=== PATIENT | female | born 1990 | race Caucasian/White ===

== ENCOUNTER 2017-05-01 14:31 | Day surgery (SDC) | payer OTHER ==
--- NOTE | 2017-05-01 15:05 | ER Document Report ---
ED Medical Screen (RME) - General Chief Complaint: Abdominal Pain Stated Complaint: STOMACH PAIN Time Seen by Provider: 05/01/17 15:03 Notes: Patient says that she awakened this morning feeling fine. She drove to the grocery store and while walking around in the grocery store began to feel some slight discomfort in her right abdomen. On the way home, while sitting in the car, she began to have actual pain in the right lower portion of her abdomen. She went to a local urgent care who told her to come here and make sure she did not have appendicitis. Has not had any nausea or vomiting. She has had diarrhea from Friday until now, but she is unable to go at all at this moment. Has not had any UTI symptoms. Not sure if she has had any fever although she has felt warm. PMH: Cholecystectomy, . Bipolar. Hypothyroid. TRAVEL OUTSIDE OF THE [place] IN LAST 30 DAYS: No - Related Data Allergies/Adverse Reactions: No Known Allergies Allergy (Verified 05/01/17 14:41) Past Medical History - Social History Chew tobacco use (# tins/day): No Frequency of alcohol use: None Drug Abuse: None Renal/ Medical History: Denies: Hx Peritoneal Dialysis Past Surgical History: Reports: Hx Section, Hx Cholecystectomy - Immunizations Hx Diphtheria, Pertussis, Tetanus Vaccination: Yes Physical Exam - Vital signs Vitals: Temp Pulse Resp BP Pulse Ox 98.1 F 107 H 18 145/116 H 100 05/01/17 14:39 05/01/17 14:39 05/01/17 14:39 05/01/17 14:39 05/01/17 14:39 Course - Vital Signs Vital signs: Temp Pulse Resp BP Pulse Ox 98.1 F 107 H 18 145/116 H 100 05/01/17 14:39 05/01/17 14:39 05/01/17 14:39 05/01/17 14:39 05/01/17 14:39
[2017-05-01 16:02] LABS: ABSOLUTE BASOPHILS # (AUTO) 0.1 10^3/uL (0.0-0.2); ABSOLUTE LYMPHOCYTES (AUTO) 1.1 10^3/uL (0.5-4.7); ABSOLUTE MONOCYTES (AUTO) 0.8 10^3/uL (0.1-1.4); ABSOLUTE NEUT (AUTO) 14.4 10^3/uL (1.7-8.2); BASOPHILS % (AUTO) 0.3 % (0-2); EOSINOPHILS % (AUTO) 0.3 % (0-6); HEMATOCRIT 42.9 % (36.0-47.0); HGB HCT DIFFERENCE -0.9; LYMPHOCYTES % (AUTO) 6.8 % (13-45); MEAN CORPUSCULAR HEMOGLOBIN 28.5 pg (27.0-33.4); MEAN CORPUSCULAR HGB CONC 32.5 g/dL (32.0-36.0); MEAN CORPUSCULAR VOLUME 88 fl (80-97); MONOCYTES % (AUTO) 4.7 % (3-13); RED CELL DISTRIBUTION WIDTH 12.1 % (11.5-14.0); SEGMENTED NEUTROPHILS % (AUTO) 87.9 % (42-78); WHITE BLOOD COUNT 16.4 10^3/uL (4.0-10.5)
[2017-05-01 16:16] LABS: ALANINE AMINOTRANSFERASE 56 U/L (9-52); ALBUMIN 4.7 g/dL (3.5-5.0); ALKALINE PHOSPHATASE 99 U/L (38-126); ANION GAP 12 (5-19); ASPARTATE AMINO TRANSFERASE 33 U/L (14-36); BILIRUBIN,DIRECT 0.3 mg/dL (0.0-0.4); BILIRUBIN,TOTAL 0.8 mg/dL (0.2-1.3); BLOOD UREA NITROGEN 12 mg/dL (7-20); CALCIUM 9.9 mg/dL (8.4-10.2); CARBON DIOXIDE 26 mmol/L (22-30); CHLORIDE 103 mmol/L (98-107); CREATININE RESULT 0.94 mg/dL (0.52-1.25); GLUCOSE 101 mg/dL (75-110); LIPASE 64.6 U/L (23-300); POTASSIUM 4.3 mmol/L (3.6-5.0); SODIUM 140.8 mmol/L (137-145); TOTAL PROTEIN 8.1 g/dL (6.3-8.2)
[2017-05-01 16:27] LABS: APPEARANCE,URINE CLEAR; BILIRUBIN,URINE NEGATIVE (NEGATIVE); GLUCOSE, URINE NEGATIVE (NEGATIVE); KETONES,URINE NEGATIVE (NEGATIVE); LEUKOCYTE ESTERASE,URINE NEGATIVE (NEGATIVE); NITRITE,URINE NEGATIVE (NEGATIVE); PROTEIN,URINE NEGATIVE (NEGATIVE); URINE SPECIFIC GRAVITY 1.023; UROBILINOGEN,URINE NEGATIVE mg/dL (<2.0)
--- NOTE | 2017-05-01 17:05 | ER Document Report ---
ED GI/ - General Chief Complaint: Abdominal Pain Stated Complaint: STOMACH PAIN Time Seen by Provider: 05/01/17 15:03 Notes: Patient is a 26-year-old female, past medical history hypothyroidism, bipolar, presents from the urgent care center after she has lower abdominal pain that started this morning and has now migrated to her right lower quadrant. She is also having nausea and vomiting. She denies diarrhea, constipation, fevers, flank pain, hematuria, dysuria, chest pain or shortness of breath. TRAVEL OUTSIDE OF THE [place] IN LAST 30 DAYS: No - Related Data Allergies/Adverse Reactions: No Known Allergies Allergy (Verified 05/01/17 14:41) Past Medical History - General Information source: Patient - Social History Smoking Status: Never Smoker Chew tobacco use (# tins/day): No Frequency of alcohol use: None Drug Abuse: None Family History: Reviewed & Not Pertinent Patient has suicidal ideation: No Patient has homicidal ideation: No Renal/ Medical History: Denies: Hx Peritoneal Dialysis Past Surgical History: Reports: Hx Section, Hx Cholecystectomy - Immunizations Hx Diphtheria, Pertussis, Tetanus Vaccination: Yes Review of Systems - Review of Systems Notes: REVIEW OF SYSTEMS: CONSTITUTIONAL: -fevers, -chills EENT: -eye pain, -difficulty swallowing, -nasal congestion CARDIOVASCULAR:-chest pain, -syncope. RESPIRATORY: -cough, -SOB GASTROINTESTINAL: +abdominal pain, +nausea, +vomiting, -diarrhea GENITOURINARY: -dysuria, -hematuria MUSCULOSKELETAL: -back pain, -neck pain SKIN: -rash or skin lesions. HEMATOLOGIC: -easy bruising or bleeding. LYMPHATIC: -swollen, enlarged glands. NEUROLOGICAL: -altered mental status or loss of consciousness, -headache, - neurologic symptoms PSYCHIATRIC: -anxiety, -depression. ALL OTHER SYSTEMS REVIEWED AND NEGATIVE. Physical Exam - Vital signs Vitals: Temp Pulse Resp BP Pulse Ox 98.1 F 107 H 18 145/116 H 100 05/01/17 14:39 05/01/17 14:39 05/01/17 14:39 05/01/17 14:39 05/01/17 14:39 - Notes Notes: PHYSICAL EXAMINATION: GENERAL: Crying, in moderate distress HEAD: Atraumatic, normocephalic. EYES: Pupils equal round and reactive to light, extraocular movements intact, sclera anicteric, conjunctiva are normal. ENT: nares patent, oropharynx clear without exudates. Moist mucous membranes. NECK: Normal range of motion, supple without lymphadenopathy LUNGS: Breath sounds clear to auscultation bilaterally and equal. No wheezes rales or rhonchi. HEART: Tachycardia ABDOMEN: Soft, nontender, normoactive bowel sounds. No guarding, no rebound. No masses appreciated. : No vaginal discharge, non-tender left and right adnexa, no masses, tenderness above right adnexa EXTREMITIES: Normal range of motion, no pitting or edema. No cyanosis. NEUROLOGICAL: Cranial nerves grossly intact. Normal speech, normal gait. Normal sensory and motor exams. PSYCH: Normal mood, normal affect. SKIN: Warm, Dry, normal turgor, no rashes or lesions noted. Course - Re-evaluation Re-evalutation: Concerned for appendicitis with nausea, vomiting and right lower quadrant abdominal pain. CT shows possible early appendicitis. With the leukocytosis and continuing RLQ pain, N/V, spoke to Dr. Law at 19:50 and he will see patient. 05/01/17 21:09 Dr. Law has accepted patient for Surgery. - Vital Signs Vital signs: Temp Pulse Resp BP Pulse Ox 98.1 F 80 18 121/73 98 05/01/17 14:39 05/01/17 19:29 05/01/17 19:29 05/01/17 19:29 05/01/17 19:29 - Laboratory Result Diagrams: 05/01/17 15:40 05/01/17 15:40 Laboratory results interpreted by me: 05/01/17 05/01/17 15:40 15:40 WBC 16.4 H Seg Neutrophils % 87.9 H Lymphocytes % 6.8 L Absolute Neutrophils 14.4 H ALT 56 H - Diagnostic Test Radiology reviewed: Image reviewed, Reports reviewed Radiology results interpreted by me: CT A/P: Possible early appendicitis Discharge - Discharge Clinical Impression: Abdominal pain Qualifiers: Abdominal location: right lower quadrant Qualified Code(s): R10.31 - Right lower quadrant pain Appendicitis, unqualified Qualifiers: Appendicitis type: acute appendicitis Qualified Code(s): K37 - Unspecified appendicitis Condition: Stable Disposition: ADMITTED INPATIENT Admitting Provider: Surgicalist - [facility] Admitted: Surgical Floor
[2017-05-01] MEDS ORDERED: MORPHINE SULFATE 10 MG/ML INJ IV ONE ×2 (17:17→20:11)
[2017-05-01] MEDS ORDERED: ONDANSETRON HCL INJ/PF 4 MG/2 ML SDV IV ONE ×3 (17:17→21:25)
--- NOTE | 2017-05-01 19:23 | RADIOLOGY REPORT (SQ) ---
EXAM DESCRIPTION: CT ABD/PELVIS WITH IV ONLY COMPLETED DATE/TIME: 05/01/2017 7:11 pm REASON FOR STUDY: RLQ pain COMPARISON: None. TECHNIQUE: CT scan of the abdomen and pelvis performed using helical scanning technique with dynamic intravenous contrast injection. No oral contrast. Images reviewed with lung, soft tissue, and bone windows. Reconstructed coronal and sagittal MPR images reviewed. Delayed images for evaluation of the urinary system also acquired. All images stored on PACS. All CT scanners at this facility use dose modulation, iterative reconstruction, and/or weight based d osing when appropriate to reduce radiation dose to as low as reasonably achievable (ALARA). [facility]: Dose Right [facility]: CareDose [facility]: Dose Right [facility]: Teradose 4D [facility]: Zextit CONTRAST TYPE AND DOSE: contrast/concentration: Isovue 370.00 mg/ml; Total Contrast Delivered: 100.0 ml; Total Saline Delivered: 32.4 ml RENAL FUNCTION: GFR > 60. RADIATION DOSE: Up-to-date CT equipment and radiation dose reduction techniques were employed. CTDIv ol: 12.8 - 17.0 mGy. DLP: 1799 mGy-cm.. LIMITATIONS: None. FINDINGS: LOWER CHEST: No significant findings. No nodules or infiltrates. LIVER: Normal size. No masses. No dilated ducts. SPLEEN: Normal size. No focal lesions. PANCREAS: No masses. No significant calcifications. No adjacent inflammation or peripancreatic fluid collections. Pancreatic duct not dilated. GALLBLADDER: No identified stones by CT criteria. No inflammatory changes to suggest cholecystitis. ADRENAL GLANDS: No significant masses or asymmetry. RIGHT KIDNEY AND URETER: No solid masses. No significant calcifications. No hydronephrosis or hyd roureter. LEFT KIDNEY AND URETER: No solid masses. No significant calcifications. No hydronephrosis or hydr oureter. AORTA AND VESSELS: No aneurysm. No dissection. Renal arteries, SMA, celiac without stenosis. RETROPERITONEUM: No retroperitoneal adenopathy, hemorrhage or masses. BOWEL AND PERITONEAL CAVITY: No masses or inflammatory changes. No free fluid or peritoneal masses. APPENDIX: The appendix is sulci is normal in size and appearance however there is very subtle strandi ng within the surrounding mesenteric fat. PELVIS: No mass or free fluid. Normal bladder. ABDOMINAL WALL: No masses. No hernias. BONES: No significant or acute findings. OTHER: No other significant finding. IMPRESSION: THE APPENDIX IS VISUALIZED AND GROSSLY NORMAL HOWEVER THERE IS SUBTLE STRANDING WITHIN T HE ADJACENT MESENTERIC FAT WHICH IS NONSPECIFIC BUT COULD BE SECONDARY TO A VERY EARLY/ MILD TIP APPE NDICITIS. CORRELATE WITH FEVER/ ELEVATED WHITE BLOOD CELL COUNT AND CONSIDER REPEAT IMAGING IN 1 TO 2 STAYS IF SYMPTOMS PERSIST. TECHNICAL DOCUMENTATION: JOB ID: [id number] Quality ID # [id number]: Final reports with documentation of one or more dose reduction techniques (e.g., Au tomated exposure control, adjustment of the mA and/or kV according to patient size, use of iterative reconstruction technique) 2010 [employer]- All Rights Reserved
[2017-05-01] MEDS ORDERED: NORMAL SALINE 1000 ML 1,000 ML IV ONE (20:12)
[2017-05-01] MEDS ORDERED: NORMAL SALINE 1000 ML 1,000 ML IV PRN (20:33)
[2017-05-01] MEDS ORDERED: AMPICILLIN SOD/SULBACTAM 3 GM VIAL IV ONE (20:33)
--- NOTE | 2017-05-01 20:33 | PDOC H&P ---
History of Present Illness Patient complains of: Right lower quadrant abdominal pain. History of Present Illness: GEORGE DOUGLASS is a 26 year old female in usual state of good physical health up until this morning when she developed diffuse mid abdominal pain which localized to the right lower quadrant as the day progressed with worsening pain. Patient has had associated nausea and vomiting but no fevers or chills. Patient has noted loose bowel movements for the last couple of days. Patient has just finished her period and has had some bloody vaginal discharge as to be expected. Past Medical History Psychiatric Medical History: Reports: Bipolar Disorder Past Surgical History Past Surgical History: Reports: Section, Cholecystectomy Social History Smoking Status: Never Smoker Family History Family History: Reviewed & Not Pertinent Parental Family History Reviewed: No Children Family History Reviewed: No Sibling(s) Family History Reviewed.: No Medication/Allergy Allergies/Adverse Reactions: No Known Allergies Allergy (Verified 05/01/17 14:41) Physical Exam Vital Signs: Temp Pulse Resp BP Pulse Ox 98.1 F 80 18 121/73 98 05/01/17 14:39 05/01/17 19:29 05/01/17 19:29 05/01/17 19:29 05/01/17 19:29 Intake & Output 04/30/17 05/01/17 05/02/17 06:59 06:59 06:59 Weight 97.1 kg General appearance: PRESENT: cooperative - Patient is tearful but alert and perfectly coherent and providing an excellent history. Neck exam: PRESENT: other - Supple with no tenderness. Respiratory exam: PRESENT: clear to auscultation brijesh Cardiovascular exam: PRESENT: RRR GI/Abdominal exam: PRESENT: other - Soft, nondistended, focal tenderness to palpation in the right lower quadrant with voluntary guarding. Neurological exam: PRESENT: alert, awake Psychiatric exam: PRESENT: other - Tearful initially but very coherent and cooperative in providing an excellent history. Results Laboratory Results: 05/01/17 15:40 05/01/17 15:40 05/01/17 05/01/17 05/01/17 15:35 15:40 15:40 WBC 16.4 H RBC 4.90 Hgb 14.0 Hct 42.9 MCV 88 MCH 28.5 MCHC 32.5 RDW 12.1 Plt Count 303 Seg Neutrophils % 87.9 H Lymphocytes % 6.8 L Monocytes % 4.7 Eosinophils % 0.3 Basophils % 0.3 Absolute Neutrophils 14.4 H Absolute Lymphocytes 1.1 Absolute Monocytes 0.8 Absolute Eosinophils 0.0 Absolute Basophils 0.1 Sodium 140.8 Potassium 4.3 Chloride 103 Carbon Dioxide 26 Anion Gap 12 BUN 12 Creatinine 0.94 Est GFR ( Amer) > 60 Est GFR (Non-Af Amer) > 60 Glucose 101 Calcium 9.9 Total Bilirubin 0.8 AST 33 ALT 56 H Alkaline Phosphatase 99 Total Protein 8.1 Albumin 4.7 Lipase 64.6 Serum HCG, Qual Urine Color YELLOW Urine Appearance CLEAR Urine pH 6.0 Ur Specific [place] 1.023 Urine Protein NEGATIVE Urine Glucose (UA) NEGATIVE Urine Ketones NEGATIVE Urine Blood NEGATIVE Urine Nitrite NEGATIVE Ur Leukocyte Esterase NEGATIVE Urine WBC (Auto) 1 Urine RBC (Auto) 0 05/01/17 15:40 WBC RBC Hgb Hct MCV MCH MCHC RDW Plt Count Seg Neutrophils % Lymphocytes % Monocytes % Eosinophils % Basophils % Absolute Neutrophils Absolute Lymphocytes Absolute Monocytes Absolute Eosinophils Absolute Basophils Sodium Potassium Chloride Carbon Dioxide Anion Gap BUN Creatinine Est GFR ( Amer) Est GFR (Non-Af Amer) Glucose Calcium Total Bilirubin AST ALT Alkaline Phosphatase Total Protein Albumin Lipase Serum HCG, Qual NEGATIVE Urine Color Urine Appearance Urine pH Ur Specific [place] Urine Protein Urine Glucose (UA) Urine Ketones Urine Blood Urine Nitrite Ur Leukocyte Esterase Urine WBC (Auto) Urine RBC (Auto) Impressions: Abdomen/Pelvis CT 05/01/17 17:17 IMPRESSION: THE APPENDIX IS VISUALIZED AND GROSSLY NORMAL HOWEVER THERE IS SUBTLE STRANDING WITHIN THE ADJACENT MESENTERIC FAT WHICH IS NONSPECIFIC BUT COULD BE SECONDARY TO A VERY EARLY/ MILD TIP APPENDICITIS. CORRELATE WITH FEVER / ELEVATED WHITE BLOOD CELL COUNT AND CONSIDER REPEAT IMAGING IN 1 TO 2 STAYS IF SYMPTOMS PERSIST. Assessment & Plan - Diagnosis (1) Appendicitis, unqualified Qualifiers: Appendicitis type: acute appendicitis Qualified Code(s): K37 - Unspecified appendicitis Is this a current diagnosis for this admission?: YesPlan: Patient's history is consistent with appendicitis as is physical exam. Although the CT scan does not demonstrate appendiceal enlargement there is inflammatory changes around it. In light of all of these factors I will proceed with laparoscopic appendectomy possible open appendectomy. I have had a long discussion with the patient concerning the risk and benefits of the procedure including risk of mistaken diagnosis, infection, bleeding, adjacent organ injury, stump leak. Patient understands and agrees to proceed.
[2017-05-01] MEDS ORDERED: AMPICILLIN SODIUM/SULBACTAM NA 3 GM in NORMAL SALINE 100 ML IV ONE (21:00)
[2017-05-01] MEDS ORDERED: HYDROMORPHONE HCL INJ/PF 2 MG/ML AMPULE IV ONE (21:24)
[2017-05-02] MEDS ORDERED: FENTANYL CITRATE INJ/PF 100 MCG/2 ML AMPUL ONE (00:54)
[2017-05-02] MEDS ORDERED: MIDAZOLAM 2 MG/2 ML INJ ONE (00:55)
[2017-05-02] MEDS ORDERED: PROPOFOL INJ 200 MG/20 ML VIAL IV ONE (00:55)
[2017-05-02] MEDS ORDERED: MORPHINE SULFATE 10 MG/ML INJ ONE (00:55)
[2017-05-02] MEDS ORDERED: MORPHINE SULFATE 10 MG/ML INJ IV ONE (01:00)
[2017-05-02] MEDS ORDERED: BUPIVACAINE HCL 0.25% /EPINEPHRINE INJ/PF 30 ML SDV ONE (01:44)
[2017-05-02] MEDS ORDERED: MORPHINE SULFATE 10 MG/ML INJ IV PRN ×3 (01:58→02:37)
[2017-05-02] MEDS ORDERED: MEPERIDINE HCL/PF INJ 25 MG/1 ML DISP.SYRIN IV PRN (01:58)
[2017-05-02] MEDS ORDERED: PROMETHAZINE HCL INJ 25 MG/1 ML VIAL IV PRN (01:58)
[2017-05-02] MEDS ORDERED: DIPHENHYDRAMINE HCL 50 MG/ML VIAL IV PRN (01:58)
[2017-05-02] MEDS ORDERED: ONDANSETRON HCL INJ/PF 4 MG/2 ML SDV IV PRN (01:58)
[2017-05-02] MEDS ORDERED: FENTANYL CITRATE INJ/PF 100 MCG/2 ML AMPUL IV PRN ×2 (01:58)
[2017-05-02] MEDS ORDERED: BUPIVACAINE HCL 0.25% /EPINEPHRINE INJ/PF 30 ML SDV INJ ONE (02:05)
--- NOTE | 2017-05-02 02:37 | Operative Report ---
Operative Report DATE OF SURGERY: 05/02/17 PREOPERATIVE DIAGNOSIS: Appendicitis POSTOPERATIVE DIAGNOSIS: Appendicitis OPERATION: Laparoscopic appendectomy SURGEON: NIKOLAS BAEZA ANESTHESIA: GA TISSUE REMOVED OR ALTERED: Appendix COMPLICATIONS: None ESTIMATED BLOOD LOSS: Minimal INTRAOPERATIVE FINDINGS: Distal appendiceal inflammatory changes but no pus no perforation PROCEDURE: Informed consent was obtained. Patient was brought to the operating room and placed on the operating room table in the supine position. After satisfactory induction of general anesthesia patient's abdomen was prepped and draped in usual sterile fashion. A supraumbilical midline incision was made dissection carried out through the fascia and the peritoneal cavity was entered without difficulty. Cordero trocar was inserted and pneumoperitoneum produced with good patient toleration. 5 mm trocar was placed in the right lateral abdomen lateral to the rectus above the level of the umbilicus. Another 5 mm trocar was placed in the left lateral abdomen lateral to the rectus below the level of the umbilicus. Patient was placed in a Trendelenburg position with the right side up. The appendix appeared thickened with inflammatory changes and its mesentery at the distal aspect. There was no evidence of perforation and no pus. A plane was created between the appendix and the mesoappendix at the base of the appendix. The appendix was taken flush with the cecum using a Endo HUMBERTO stapling device. The mesoappendix was taken using a vascular load of the Endo HUMBERTO stapling device. The stump closure site appeared secure. The appendix was placed in an Endobag and removed through the Cordero trocar site fascial defect. The right colon appeared normal. The right ovary appeared normal as did the left ovary. There were small cysts at the bilateral fallopian tubes. But nothing suspicious. The sigmoid colon appeared normal. The small bowel was run from the ileocecal junction for about 100 cm and no abnormalities were seen. Hemostasis appeared excellent. The operative field was lightly irrigated and irrigant aspirated out. All trochars were removed under the direct vision of the laparoscope to ensure hemostasis. The Cordero trocar site fascial defect was closed with interrupted Vicryl sutures. All skin incisions were closed with subcuticular interrupted Monocryl sutures. Patient tolerated procedure well with no apparent complications and was taken to the recovery area in stable condition.
[2017-05-02] MEDS: ONDANSETRON HCL INJ/PF 4 MG/2 ML SDV IV PRN ×2 (08:09→18:54)
[2017-05-02] MEDS ORDERED: HYDROMORPHONE HCL INJ/PF 2 MG/ML AMPULE IV PRN ×4 (09:06→09:10)
[2017-05-02] MEDS ORDERED: HYDROCODONE/ACETAMINOPHEN 5-325 MG TABLET PO PRN (09:09)
[2017-05-02] MEDS ORDERED: LIDOCAINE 2% INJ-PF (20 MG/ML) 10 ML AMPUL ONE (10:04)
[2017-05-02] MEDS ORDERED: GLYCOPYRROLATE INJ 0.4 MG/2 ML VIAL ONE (10:04)
[2017-05-02] MEDS ORDERED: SUCCINYLCHOLINE CHLORIDE INJ 200 MG/10 ML VIAL ONE (10:04)
[2017-05-02] MEDS ORDERED: NEOSTIGMINE METHYLSULFATE 10 MG/10 ML VIAL ONE (10:04)
[2017-05-02] MEDS ORDERED: VECURONIUM BROMIDE INJ 10 MG VIAL IV ONE (10:04)
[2017-05-02] MEDS ORDERED: DEXAMETHASONE SOD PHOSPHATE INJ 4 MG/1 ML VIAL ONE (10:04)
[2017-05-02] MEDS ORDERED: ONDANSETRON HCL INJ/PF 4 MG/2 ML SDV ONE (10:04)
[2017-05-02] MEDS: LEVOTHYROXINE SODIUM 0.088 MG TABLET PO SCH (10:07)
[2017-05-02] MEDS: KETOROLAC TROMETHAMINE INJ/PF 30 MG/1 ML SDV IV SCH ×3 (10:07→21:45)
[2017-05-02] MEDS ORDERED: NORMAL SALINE 1000 ML 1,000 ML IV PRN (17:11)
[2017-05-02] MEDS: HYDROCODONE/ACETAMINOPHEN 5-325 MG TABLET PO PRN (18:11)
--- NOTE | 2017-05-02 21:18 | PROGRESS NOTE E ---
Progress Note NAME: GEORGE DOUGLASS : 1990 AGE: 26Y DATE: 05/02/2017 ROOM: [facility] SUBJECTIVE: The patient is postoperative day #1 from laparoscopic appendectomy for acute appendicitis. The patient is complaining of nausea along with pain at the incision sites. OBJECTIVE: VITAL SIGNS: Blood pressure 110/63, temperature is 98.5, pulse is 78, respirations 20. ABDOMEN: Abdominal incisions are clean without any evidence of infection or significant drainage. ASSESSMENT: STATUS POST LAPAROSCOPIC APPENDECTOMY, POSTOPERATIVE DAY 1. The patient is having continued nausea and some emesis that is nonbilious. I would recommend adding IV antiemetics to her regimen and once her nausea has improved, then starting on a liquid diet and eventually oral pain medication. PLAN: 1. Antiemetics IV. 2. Continue IV fluids. 3. Once her nausea has resolved, then will advance to a liquid diet. 4. When tolerating liquid diet, then will start oral pain medication. 5. Continue IV fluids until taking adequate oral intake. DICTATING PHYSICIAN: TATIANNA SHELTON M.D. [id number] PHY#: [id number] ID: [id number] JOB#: [id number] ACCT: [id number] cc: >
[2017-05-03] MEDS: KETOROLAC TROMETHAMINE INJ/PF 30 MG/1 ML SDV IV SCH ×2 (03:57→09:44)
[2017-05-03] MEDS: LEVOTHYROXINE SODIUM 0.088 MG TABLET PO SCH (07:48)
[2017-05-03] MEDS: HYDROCODONE/ACETAMINOPHEN 5-325 MG TABLET PO PRN (07:48)
[2017-05-03 09:04] VITALS: BP 108/60
--- NOTE | 2017-05-04 23:58 | DISCHARGE SUMMARY E ---
Discharge Summary NAME: GEORGE DOUGLASS : 1990 AGE: 26Y ADMITTED: 05/01/2017 DISCHARGED: 05/03/2017 REASON FOR ADMISSION: Abdominal pain. HISTORY OF PRESENT ILLNESS: The patient is a 26-year-old female who presents with lower abdominal pain. She had a CT scan of the abdomen and pelvis, which was suggestive of acute appendicitis. Her white blood cell count was 16,000. PRINCIPAL DIAGNOSIS: Acute appendicitis. PROCEDURES: The patient underwent a laparoscopic appendectomy on 05/02/2017. HOSPITAL COURSE: The patient was admitted to the hospital and underwent the above procedure. She tolerated well and was transferred to the floor. Overnight and the next day she continued to have nausea and therefore was only kept on oral liquids. Antiemetics were instituted, which did help some. On the day of discharge, the patient was not having any further nausea. She was tolerating a liquid diet. Her abdominal incisions were clean without any evidence of infection and she was afebrile. She was then discharged home in stable condition. DISCHARGE PLAN: The patient will be discharged home. Followup in surgical clinic in 1 to 2 weeks. Regular diet. No lifting over 15 pounds for 2 weeks. [place] 5/325 mg 1 to 2 p.o. q.4 to 6 hours p.r.n. pain. The patient may shower. No driving while taking pain medications. DICTATING PHYSICIAN: TATIANNA SHELTON M.D. [id number] PHY#: [id number] ID: [id number] JOB#: [id number] ACCT: [id number] cc:Michael HOWARD MD, M.D. JAMES GARRETT, M.D. >
== END 2017-05-03 09:55 | disposition home or self-care (01) ==
LOC: ER 14:31 → OROUT 20:33 → UNDOADMIN 20:33 → EH 20:33 → ER 20:33 → EH 21:13 → UNDOADMIN 21:13 → 2N 22:00 → EH 22:00 → 2N 22:00 → UNDODISIN 05-03 09:55 → OROUT 05-03 09:55
PROVIDERS: ATTEND Surgery
PROC: 0DTJ4ZZ Resection of Appendix, Percutaneous Endoscopic Approach (ICD-10-PCS; principal; 2017-05-01 23:30)
DX: K35.80 Unspecified acute appendicitis (principal); F31.9 Bipolar disorder, unspecified; E03.9 Hypothyroidism, unspecified
CPT/HCPCS: 96376; 99285; 96361; 96374; 96375; 36415; 87040; 83690; 84703; 85025; 80053; 81001; 88304 ×2; 74177; 44970; J2250; J1100; J3010; J0295; J3490 ×2; J1885 ×2; J2270 ×2; J1170; J0330; J2405 ×2; J7030 ×2; J2704; 840